=== PATIENT | male | born 1950 | race Caucasian/White ===

== ENCOUNTER → 2016-10-17 | Outpatient (CLI) | payer OTHER | LOC: MMPC 09:00 | PROVIDERS: ATTEND Family Medicine | DX: E03.9 Hypothyroidism, unspecified (principal); K74.4 Secondary biliary cirrhosis; R60.0 Localized edema | CPT/HCPCS: 99203; G0463 ==

== ENCOUNTER 2019-04-30 10:47 | Inpatient (IN) ==
[2019-04-30] MEDS ORDERED: PANTOPRAZOLE IV 40 MG VIAL IVP ONE (10:56)
[2019-04-30 11:05] LABS: BASOPHILS # (AUTO) 0.03 10*3/UL; BASOPHILS % (AUTO) 0.5 % (0-1); EOSINOPHILS # (AUTO) 0.01 10*3/UL; EOSINOPHILS % (AUTO) 0.2 % (0-8); Hematocrit [HCT] 34.9 % (42.0-52.0); LYMPHOCYTES # (AUTO) 1.01 10*3/uL; MEAN CORPUSCULAR HGB CONC 34.4 g/dL (33-37); MEAN CORPUSCULAR VOLUME 108.7 FL (80-90); MEAN PLATELET VOLUME 9.7 FL (7.4-12.2); MONOCYTES # (AUTO) 0.51 10*3/UL (0.3-0.8); MONOCYTES % (AUTO) 8.3 % (5-15); NEUTROPHILS # (AUTO) 4.53 10*3/UL; NEUTROPHILS % (AUTO) 73.6 % (50-80); RED BLOOD COUNT 3.21 10^6/uL (4.70-6.10)
[2019-04-30 11:07] LABS: PLATELET MORPHOLOGY COMMENT NORMAL MORPHOLOGY (NORM); RBC MORPHOLOGY COMMENT NORMAL MORPHOLOGY (NORM); WBC MORPHOLOGY COMMENT NORMAL MORPHOLOGY (NORM)
[2019-04-30 11:18] LABS: BLOOD UREA NITROGEN 25 mg/dL (7-22); SERUM ALBUMIN 2.5 g/dL (3.5-4.8)
[2019-04-30 11:23] VITALS: BP 99/55; TEMP 97.4; O2SAT 97
[2019-04-30 11:41] LABS: BILIRUBIN,URINE LARGE (NEG); CLARITY,URINE CLEAR (CLEAR); COLOR,URINE ORANGE (Y); GLUCOSE, URINE (UA) NEGATIVE (NEG); OCCULT BLOOD,URINE NEGATIVE (NEG); PROTEIN,URINE TRACE mg/dl (NEG)
[2019-04-30 11:58] LABS: URINE SAMPLE TYPE CATH SPECIMEN
[2019-04-30 11:59] LABS: BACTERIA,URINE MODERATE; RENAL EPITHELIAL CELLS,URINE FEW
[2019-04-30 12:01] LABS: URINE SAMPLE TYPE CATH SPECIMEN
[2019-04-30] MEDS ORDERED: CALCIUM CARBONATE 500 MG (TUMS) CHEWABLE TABLET PO PRN (12:15)
[2019-04-30] MEDS ORDERED: ONDANSETRON 4 MG/2 ML VIAL IVP PRN (12:15)
[2019-04-30] MEDS ORDERED: ACETAMINOPHEN 325 MG TABLET PO PRN (12:15)
[2019-04-30] MEDS ORDERED: LIDOCAINE W/ SODIUM BICARB 0.5 ML SYR SUBD PRN (12:15)
[2019-04-30] MEDS ORDERED: DOCUSATE 100 MG CAPSULE PO PRN (12:15)
[2019-04-30] MEDS ORDERED: DIAZEPAM 10 MG/2 ML (5 MG/1 ML) CARPUJECT IVP PRN (13:06)
[2019-04-30] MEDS ORDERED: Sodium Chloride 0.9% 1,000 ML PRIMARY IV SCH (13:15)
[2019-04-30] MEDS ORDERED: Morphine Drip 250mg/250ml 250 MG/250 ML PLAST..BAG IV SCH (13:15)
[2019-04-30] MEDS ORDERED: SCOPOLAMINE HYDROBROMIDE 1.5 MG - 1 EACH PATCH TRANSDERM SCH (13:15)
[2019-04-30] MEDS ORDERED: Keys-Morphine Palliative Care PRN (14:02)
[2019-04-30] MEDS ORDERED: Keys-Morphine Palliative Care ONE (14:08)
[2019-04-30] MEDS: Hypromellose/Glycerin/PEG 400 Ophth Soln 15 ML DROPS EACH EYE SCH ×5 (15:24→22:48)
[2019-05-01] MEDS: Hypromellose/Glycerin/PEG 400 Ophth Soln 15 ML DROPS EACH EYE SCH ×3 (01:11→03:03)
[2019-05-01 03:50] VITALS: RESP 0
== END 2019-05-01 03:06 | disposition expired | DRG 441 ==
LOC: ER 10:47 → MED/SURG 12:34
PROVIDERS: ADMIT Family Medicine; ATTEND Family Medicine